=== PATIENT | male | born 1990 | race Caucasian/White ===

== ENCOUNTER 2021-07-02 13:10 | Emergency (ER) | payer BC ==
[~2021-07-02] VITALS: Ht 170.2 cm; Wt 79.4 kg
[2021-07-02] MEDS ORDERED: LEVO-T75 MCG PO (13:31)
[2021-07-02 14:35] VITALS: BP 150/91
== END 2021-07-02 14:38 | disposition home or self-care (01) ==
LOC: M.ERS 13:10
DX: R50.9 Fever, unspecified (principal); E03.9 Hypothyroidism, unspecified; Z20.822 Contact with and (suspected) exposure to COVID-19